=== PATIENT | male | born 1965 | race Caucasian/White ===

== ENCOUNTER 2025-03-10 23:41 | Emergency (ER) | payer MEDICARE, MEDICAID ==
[~2025-03-10] VITALS: Ht 175.3 cm; Wt 81.0 kg
[2025-03-10 23:50] VITALS: O2SAT 96
[2025-03-11] MEDS: PIPERACILLIN/TAZO 3.375G/50ML 50 ML IV ONE (00:50)
[2025-03-11] MEDS: SODIUM CHLORIDE 0.9% (SEPSIS BOLUS) IV ONE (00:51)
[2025-03-11 01:19] LABS: BASOPHILS % 0.6 % (0.0-2.0); EOSINOPHILS % 2.7 % (0.0-5.0); HEMATOCRIT. 39.0 % (42.0-52.0); HEMOGLOBIN. 12.8 g/dL (14.0-18.0); LYMPHOCYTES % 20.0 % (20.0-50.0); MEAN PLATELET VOLUME 8.2 fl (7.4-10.4); MONOCYTES % 8.5 % (2.0-8.0); NEUTROPHILS % 68.2 % (40.0-76.0); PLATELET 259 x1000/uL (130-400); RED BLOOD CELL COUNT 4.22 mill/uL (4.7-6.1); RED CELL DISTRIBUTION WIDTH 13.3 % (11.6-14.6)
[2025-03-11 01:25] LABS: INR 1.1
[2025-03-11 01:34] LABS: CREATININE 0.8 mg/dL (0.6-1.3)
[2025-03-11 01:35] LABS: UREA NITROGEN BLOOD 12 mg/dL (9-23)
[2025-03-11 01:36] LABS: ASPARTATE AMINOTRANSFERASE 20 IU/L (<34)
[2025-03-11 01:37] LABS: BILIRUBIN DIRECT 0.1 mg/dL (<=3.0); BILIRUBIN TOTAL 0.4 mg/dL (0.1-1.0); PROTEIN TOTAL 7.3 g/dL (6.0-8.3)
[2025-03-11] MEDS: VANCOMYCIN 1G PREMIX 200 ML IV ONE (02:12)
[2025-03-11 04:49] LABS: CLARITY URINE CLEAR (CLEAR); COLOR URINE YELLOW (YELLOW); GLUCOSE URINE NEGATIVE (NEGATIVE); KETONES URINE NEGATIVE (NEGATIVE); LEUKOCYTE ESTERASE URINE NEGATIVE (NEGATIVE); NITRITE URINE NEGATIVE (NEGATIVE); OCCULT BLOOD URINE NEGATIVE (NEGATIVE); PH URINE 6.0 (4.5-8.0); PROTEIN URINE NEGATIVE (NEGATIVE); SPECIFIC GRAVITY URINE 1.010 (1.005-1.030); UROBILINOGEN URINE 0.2 E.U./dL (0.2-1.0)
[2025-03-11] MEDS ORDERED: ONDANSETRON HCL 4MG/2ML INJ IV PRN (05:15)
[2025-03-11] MEDS ORDERED: ACETAMINOPHEN 325MG TABLET PO PRN (05:15)
[2025-03-11] MEDS ORDERED: HYDRALAZINE 20MG/ML VIAL IV PRN (05:15)
[2025-03-11] MEDS ORDERED: DOCUSATE SODIUM 100MG CAPSULE PO PRN (05:15)
[2025-03-11] MEDS ORDERED: IPRATROPIUM/ALBUTEROL 0.5-3(2.5)MG/3ML NEB HHN PRN (05:15)
[2025-03-11] MEDS ORDERED: HALOPERIDOL LACTATE 5MG/ML VIAL IM NR (06:30)
[2025-03-11 08:25] VITALS: BP 128/76; PULSE 66; RESP 17; TEMP 36.7; O2SAT 96
[2025-03-11] MEDS ORDERED: PANTOPRAZOLE SODIUM 40 MG/VIAL IV SCH (09:00)
== END 2025-03-11 08:20 | disposition left against medical advice (07) ==
LOC: ER 03-11 00:08 → EDBEDREQ 03-11 02:02 → EDBEDREQTM 03-11 02:02 → ER 03-11 08:20 → CANBEDREQ 03-11 08:32
DX: L03.115 Cellulitis of right lower limb (principal); F31.9 Bipolar disorder, unspecified; Z79.899 Other long term (current) drug therapy; Z79.01 Long term (current) use of anticoagulants; Z53.29 Procedure and treatment not carried out because of patient's decision for other reasons
CPT/HCPCS: 99285; 96365; 96367; 96366; 80076; 80048; 81003; 83605; 85025; 85610; 87040; 87086; 36415; 84145; 73590; J2543; J3373; J7030